=== PATIENT | female | born 1985 | race Caucasian/White ===

== ENCOUNTER 2016-08-13 10:02 | Day surgery (SDC) | payer OTHER ==
[~2016-08-13] VITALS: Ht 177.8 cm; Wt 167.8 kg
[~2016-08-13 10:02] MED LIST: Coumadin,Jantoven PO; DEPO-PROVER150 MG/ML IM; DOXYCYCLINE HY100 MG PO; Hydrodiuril,Oretic,E PO; Lovenox SC; METOPROLOL TART75 MG PO; ZOFRAN ODT4 MG PO
[2016-08-13 10:46] LABS: HEMATOCRIT 40.9 % (36.0-46.0); MCH 29.5 PG (29.0-34.0); MCV 86.8 FL (83-99); MEAN PLAT.VOLUME 10.4 uM^3 (9.5-12.4); PLATELET COUNT 277 K/uL (156-360); RBC DIS.WIDTH-CV 13.5 % (11.8-14.6); RED BLOOD COUNT 4.71 M/uL (3.80-5.20); WHITE BLOOD COUNT 9.8 K/uL (4.1-10.2)
[2016-08-13 10:47] VITALS: BP 141/88
[2016-08-13 11:20] LABS: POINT-OF-CARE METER ID UU14174212
[2016-08-13] MEDS ORDERED: COLACE100 MG PO (12:39)
[2016-08-13] MEDS ORDERED: PERCOCET 5/31 TABLET PO (12:39)
[2016-08-13 14:33] LABS: POINT-OF-CARE METER ID UU13113675
[2016-08-13 15:50] VITALS: BP 122/71
[2016-08-13 16:46] VITALS: BP 130/76
[2016-08-13 18:10] VITALS: BP 126/71
== END 2016-08-13 18:38 | disposition home or self-care (01) ==
LOC: SDC 10:02
PROVIDERS: Surgery
PROC: 0FT44ZZ Resection of Gallbladder, Percutaneous Endoscopic Approach (ICD-10-PCS; principal; 2016-08-13)
DX: K80.10 Calculus of gallbladder with chronic cholecystitis without obstruction (principal); E11.9 Type 2 diabetes mellitus without complications; I10 Essential (primary) hypertension; E66.9 Obesity, unspecified; Z68.43 Body mass index [BMI] 50.0-59.9, adult; Z86.711 Personal history of pulmonary embolism; Z79.84 Long term (current) use of oral hypoglycemic drugs; J30.9 Allergic rhinitis, unspecified; Z80.9 Family history of malignant neoplasm, unspecified; Z83.3 Family history of diabetes mellitus
CPT/HCPCS: 82948; 85027; 88304; J0131; J0330; J0690; J1100; J1170; J1885; J2405; J2710; J2765; J3010